=== PATIENT | female | born 1940 | race Caucasian/White ===

== ENCOUNTER 2022-07-01 13:32 | Emergency (ER) | payer OTHER, MEDICARE ==
[2022-07-01] MEDS ORDERED: ASPIRIN 81 MG CHEWABLE TABLETS PO ONE (13:54)
[2022-07-01 13:55] VITALS: BP 168/84; TEMP 98.2; BMI 25.9
[2022-07-01] MEDS ORDERED: ASPIRIN 81 MG CHEWABLE TABLETS ONE (14:45)
[2022-07-01 14:53] VITALS: PULSE 86; RESP 18
[2022-07-01 15:14] LABS: BASO % 0.3 % (0-2.0); EOS % 0.3 % (0-4.5); HEMATOCRIT 39.4 % (32.4-45.2); HEMOGLOBIN 13.1 GM/dL (10.7-15.3); LYMPH % 11.9 % (8-40); MCHC 33.2 g/dl (32.0-36.0); MEAN CELL VOLUME 90.4 fl (80-96); MEAN PLT VOLUME 9.3 fl (7.5-11.1); MONO % 8.7 % (3.8-10.2); NEUT % 78.8 % (42.8-82.8); PLATELET COUNT 205 10^3/uL (134-434); RBC 4.35 M/mm3 (3.60-5.2); RDW 14.6 % (11.6-15.6); WHITE BLOOD COUNT 11.3 K/mm3 (4.0-10.0)
[2022-07-01 15:21] LABS: INR 1.04 (0.83-1.09)
[2022-07-01 15:23] LABS: ACTIVATED PTT 26.6 SECONDS (25.2-36.5)
[2022-07-01 15:26] LABS: ALBUMIN 3.9 g/dl (3.4-5.0); CALCIUM 9.5 mg/dL (8.5-10.1)
[2022-07-01 15:27] LABS: BLOOD UREA NITROGEN 28.4 mg/dL (7-18); MAGNESIUM 2.2 mg/dL (1.8-2.4)
[2022-07-01 15:30] LABS: CREATININE 1.1 mg/dL (0.55-1.3)
[2022-07-01 15:31] LABS: BILIRUBIN,TOTAL 0.6 mg/dL (0.2-1)
== END 2022-07-01 17:32 | disposition home or self-care (01) ==
LOC: JER 13:32
DX: R07.9 Chest pain, unspecified (principal)
CPT/HCPCS: 36415; 71046-TC-FY; 80053; 82550; 83735; 84484; 85025; 85610; 85730; 93005; 93010; 99285-25

== ENCOUNTER 2024-08-17 15:03 | Emergency (ER) | payer OTHER, MEDICARE ==
[2024-08-17 15:16] VITALS: BP 127/57; PULSE 78; RESP 16; TEMP 97.3; BMI 25.2
[2024-08-17] MEDS ORDERED: ACETAMINOPHEN 325 MG TABLET (FP) ONE (15:50)
[2024-08-17 15:55] LABS: HEMATOCRIT 36.2 % (32.4-45.2); HEMOGLOBIN 12.4 G/dL (10.7-15.3); MCH 31.2 pg (25.7-33.7); MCHC 34.2 g/dl (32.0-36.0); MEAN CELL VOLUME 91.3 fl (80-96); PLATELET COUNT 147.4 10^3/uL (134-434); RBC 3.97 10^6/uL (3.60-5.2); WHITE BLOOD COUNT 5.1 10^3/uL (4.0-10.8)
[2024-08-17] MEDS: SODIUM CHLORIDE 0.9% 500 ML INFUS.BAG IV ONE (16:20)
[2024-08-17] MEDS: ACETAMINOPHEN 325 MG TABLET (FP) PO ONE (16:20)
[2024-08-17 16:23] LABS: ALBUMIN 4.1 g/dl (3.4-5.0); BILIRUBIN,TOTAL 0.4 mg/dl (0.2-1); CALCIUM 9.1 mg/dl (8.5-10.1); CREATININE 1.4 mg/dl (0.6-1.3); POTASSIUM 3.8 mmol/L (3.5-5.1)
== END 2024-08-17 19:12 | disposition home or self-care (01) ==
LOC: FER 15:03
DX: S80.211A Abrasion, right knee, initial encounter (principal); S80.212A Abrasion, left knee, initial encounter; R42 Dizziness and giddiness; R07.89 Other chest pain; W01.0XXA Fall on same level from slipping, tripping and stumbling without subsequent striking against object, initial encounter; Y92.522 Railway station as the place of occurrence of the external cause
CPT/HCPCS: 36415; 70450-TC; 71046-TC-FY; 71101-TC-RT-FY; 72125-TC; 80053; 81003; 81015; 84484; 85027; 87086; 93005; 99285-25